=== PATIENT | male | born 1990 | race Caucasian/White ===

== ENCOUNTER 2017-04-18 18:17 | Emergency (ER) | payer MEDICAID ==
[~2017-04-18] VITALS: Ht 175.3 cm; Wt 100.0 kg
[2017-04-18] MEDS ORDERED: KETOROLAC TROMETHAMINE 60 MG/2 ML VIAL IM ONE (19:30)
[2017-04-18 20:52] VITALS: BP 155/99
== END 2017-04-18 20:54 | disposition home or self-care (01) ==
LOC: EMS 18:23
DX: S80.02XA Contusion of left knee, initial encounter (principal); X58.XXXA Exposure to other specified factors, initial encounter; Y93.89 Activity, other specified; Y92.89 Other specified places as the place of occurrence of the external cause; Y99.8 Other external cause status
CPT/HCPCS: 29530; 73562; 96372; 99284; J1885

== ENCOUNTER 2018-09-15 09:14 | Emergency (ER) | payer MEDICAID ==
[~2018-09-15] VITALS: Ht 177.8 cm; Wt 100.0 kg
[2018-09-15] MEDS ORDERED: DiphenhydrAMINE HCL 25 MG CAPSULE PO ONE ×2 (10:00)
[2018-09-15] MEDS ORDERED: PredniSONE 20 MG TABLET PO ONE (10:00)
[2018-09-15 10:14] VITALS: BP 145/89
== END 2018-09-15 10:17 | disposition home or self-care (01) ==
LOC: EMS 09:14
DX: L50.9 Urticaria, unspecified (principal); R03.0 Elevated blood-pressure reading, without diagnosis of hypertension
CPT/HCPCS: 99284; J7512

== ENCOUNTER 2018-09-17 10:21 | Emergency (ER) | payer MEDICAID ==
[~2018-09-17] VITALS: Ht 182.9 cm; Wt 81.8 kg
[2018-09-17] MEDS ORDERED: DIPH25 PO (10:35)
[2018-09-17] MEDS ORDERED: PRED1 PO (10:35)
[2018-09-17] MEDS ORDERED: FAMOTIDINE 20 MG TABLET PO ONE (11:30)
[2018-09-17] MEDS ORDERED: DEXAMETHASONE 4 MG TABLET PO ONE (11:30)
[2018-09-17] MEDS ORDERED: HydrOXYzine HCL 50 MG TABLET PO ONE (11:30)
[2018-09-17 12:57] VITALS: BP 162/92
== END 2018-09-17 13:12 | disposition home or self-care (01) ==
LOC: EMS 10:23
DX: L50.9 Urticaria, unspecified (principal)
CPT/HCPCS: 99284; J8540

== ENCOUNTER 2019-06-30 01:43 | Emergency (ER) | payer SELFPAY ==
[~2019-06-30] VITALS: Ht 177.8 cm; Wt 106.8 kg
[~2019-06-30 01:43] MED LIST: DIPH25 PO; PRED1 PO
[2019-06-30] MEDS ORDERED: DOXYCYCLINE HYCLATE 100 MG CAPSULE PO ONE (02:45)
[2019-06-30] MEDS ORDERED: KETOROLAC TROMETHAMINE 30 MG/ML VIAL IVP ONE (02:45)
[2019-06-30] MEDS ORDERED: CefTRIAXone 1 GM/DEXTROSE 50 ML IV ONE (02:45)
[2019-06-30 03:39] LABS: BASOPHILS % (AUTO) 1.1 % (0.0-2.0); EOSINOPHILS % (AUTO) 5.3 % (1.0-6.0); HEMATOCRIT 41.2 % (41-53); LYMPHOCYTES # (AUTO) 2.5 K/uL (1.0-4.8); LYMPHOCYTES % (AUTO) 30.3 % (22.0-44.0); MEAN CORPUSCULAR HEMOGLOBIN 30.4 pg (26.0-34.0); MEAN CORPUSCULAR VOLUME 89 fL (80-100); MONOCYTES # (AUTO) 0.7 K/uL (0.1-1.0); MONOCYTES % (AUTO) 8.2 % (2.0-9.0); NEUTROPHILS # (AUTO) 4.6 K/uL (1.8-7.7); NEUTROPHILS % (AUTO) 55.1 % (40.0-70.0); PLATELET COUNT (AUTO) 253 K/uL (150-450); RED CELL DISTRIBUTION WIDTH 12.6 % (11.5-14.5)
[2019-06-30 03:44] LABS: ANION GAP 11 mmol/L (8-16); CALCIUM, TOTAL 9.3 mg/dL (8.8-10.5); CARBON DIOXIDE 27 mmol/L (22-29); CHLORIDE 100 mmol/L (98-107); GLOMERULAR FILTR. RATE CALC > 60 mL/min (>60); GLUCOSE,RANDOM 103 mg/dL (70-110); POTASSIUM 3.9 mmol/L (3.5-5.1); SODIUM SERUM 138 mmol/L (136-145); UREA NITROGEN, BLOOD 10 mg/dL (7-18)
[2019-06-30 03:49] LABS: ALANINE AMINOTRANSFERASE 269 U/L (12-78); ALBUMIN 4.2 g/dL (3.4-5.0); ALKALINE PHOSPHATASE 83 U/L (46-116); ASPARTATE AMINOTRANSFERASE 104 U/L (15-37); BILIRUBIN,TOTAL 0.6 mg/dL (0.1-1.0); TOTAL PROTEIN, SERUM 8.3 g/dL (6.4-8.2)
[2019-06-30 03:52] LABS: LACTIC ACID 0.7 mmol/L (0.4-2.0)
[2019-06-30 04:08] VITALS: BP 135/77
== END 2019-06-30 04:10 | disposition home or self-care (01) ==
LOC: EMS 01:44
DX: H60.12 Cellulitis of left external ear (principal); R07.89 Other chest pain; Z98.890 Other specified postprocedural states
CPT/HCPCS: 36415; 71045; 80053; 83605; 84484; 85025; 93005; 96365; 96375; 99285; J0696; J1885

== ENCOUNTER 2023-03-07 15:48 | Emergency (ER) | payer MEDICAID ==
[~2023-03-07] VITALS: Ht 177.8 cm; Wt 105.9 kg
[2023-03-07 15:52] VITALS: TEMP 98.8
[2023-03-07] MEDS ORDERED: OFLO5DRO21 AD (16:28)
[2023-03-07] MEDS ORDERED: CIPR500T10 PO (16:28)
[2023-03-07] MEDS ORDERED: OFLOXACIN 0.3% 5 ML OTIC SOLUTION AD ONE (16:30)
[2023-03-07] MEDS ORDERED: CIPROFLOXACIN HCL 250 MG TABLET PO ONE (16:30)
[2023-03-07] MEDS ORDERED: ACETAMINOPHEN 500 MG TABLET PO ONE (16:30)
[2023-03-07 17:25] VITALS: BP 159/90; PULSE 65; RESP 18
== END 2023-03-07 17:28 | disposition home or self-care (01) ==
LOC: EMS 15:57
DX: H60.91 Unspecified otitis externa, right ear (principal); Z98.890 Other specified postprocedural states
CPT/HCPCS: 99284; Z7502; Z7610

== ENCOUNTER 2023-07-15 08:26 | Emergency (ER) | payer MEDICAID ==
[~2023-07-15] VITALS: Ht 177.8 cm; Wt 106.8 kg
[~2023-07-15 08:26] MED LIST changes: +CIPR500T10 PO; -DIPH25 PO; +OFLO5DRO4 AD; -PRED1 PO
[2023-07-15 08:42] VITALS: TEMP 98.4
[2023-07-15] MEDS: ACETAMINOPHEN 500 MG TABLET PO ONE (09:25)
[2023-07-15] MEDS ORDERED: ACET-3385 PO (10:31)
[2023-07-15] MEDS ORDERED: IBUP-1492 PO (10:31)
[2023-07-15 11:15] VITALS: BP 145/94; PULSE 70; RESP 16
== END 2023-07-15 11:37 | disposition home or self-care (01) ==
LOC: EMS 08:26
DX: S90.32XA Contusion of left foot, initial encounter (principal); Z98.890 Other specified postprocedural states; X50.3XXA Overexertion from repetitive movements, initial encounter; Y93.89 Activity, other specified; Y92.89 Other specified places as the place of occurrence of the external cause; Y99.8 Other external cause status
CPT/HCPCS: 99283